=== PATIENT | male | born 1955 | race Caucasian/White ===

== ENCOUNTER 2017-02-23 17:06 | Inpatient (IN) | payer OTHER ==
[~2017-02-23] VITALS: Ht 170.2 cm; Wt 69.4 kg
[2017-02-23] MEDS ORDERED: ACETAMINOPHEN 650 MG SUPP.RECT. PR PRN (17:30)
[2017-02-23 17:32] VITALS: BP 149/83
[2017-02-23] MEDS: MORPHINE SULFATE 4 MG/ML DISP.SYRIN. IV PRN ×2 (17:38→22:09)
[2017-02-23] MEDS: POTASSIUM CL 20MEQ D5-0.45NACL 1,000 ML IV SCH (17:41)
[2017-02-23] MEDS: ONDANSETRON PF 4 MG/2 ML VIAL. IV PRN ×2 (17:50→22:10)
[2017-02-23] MEDS ORDERED: PIP/TAZO PER PHARMACY MC PRN (18:00)
[2017-02-23] MEDS ORDERED: ALLO300T PO (18:03)
[2017-02-23] MEDS ORDERED: DAPS60GE TP (18:03)
[2017-02-23] MEDS ORDERED: AMLO10TA2 PO (18:04)
[2017-02-23] MEDS ORDERED: FENO145T2 PO (18:05)
[2017-02-23] MEDS ORDERED: OMEG10005 PO (18:06)
[2017-02-23] MEDS ORDERED: MULT1TAB77 PO (18:06)
[2017-02-23] MEDS ORDERED: Dapsone PO (18:08)
[2017-02-23] MEDS: PIPERACILLIN/TAZOBACTAM 3.375 GM in IV NORMAL SALINE 50ML 50 ML IV SCH ×2 (18:37→23:12)
[2017-02-23 22:35] VITALS: BP 116/66
[2017-02-24] MEDS: MORPHINE SULFATE 4 MG/ML DISP.SYRIN. IV PRN ×5 (02:49→23:36)
[2017-02-24] MEDS: ONDANSETRON PF 4 MG/2 ML VIAL. IV PRN ×3 (02:49→17:52)
[2017-02-24] MEDS: POTASSIUM CL 20MEQ D5-0.45NACL 1,000 ML IV SCH ×2 (02:57→14:05)
[2017-02-24] MEDS: PIPERACILLIN/TAZOBACTAM 3.375 GM in IV NORMAL SALINE 50ML 50 ML IV SCH ×3 (05:16→17:53)
[2017-02-24 05:41] VITALS: BP 110/66
[2017-02-24 06:16] LABS: BASO % 0 % (0-3); EOS % 0 % (0-3); HEMATOCRIT 37.1 % (39.0-53.0); HEMOGLOBIN 12.2 g/dL (13.0-17.5); LYMPH # 0.5 x10^3/uL (1.0-4.8); LYMPH % 4 % (24-48); MEAN CORPUSCULAR HEMOGLOBIN 31 pg (25-35); MEAN CORPUSCULAR HGB CONC 33 g/dL (31-37); MEAN CORPUSCULAR VOLUME 95 fL (79-100); MONO # 0.6 x10^3/uL (0.0-1.1); MONO % 5 % (0-9); NEUT # 11.4 x10^3uL (1.8-7.7); NEUT % 91 % (31-73); PLATELET COUNT 211 x10^3/uL (140-400); RED BLOOD COUNT 3.91 x10^6/uL (4.30-5.70); RED CELL DISTRIBUTION WIDTH 13.5 % (11.5-14.5); WHITE BLOOD COUNT 12.5 x10^3/uL (4.0-11.0)
[2017-02-24 06:29] LABS: ALBUMIN 2.9 g/dL (3.4-5.0); ALBUMIN/GLOBULIN RATIO 0.9 (1.0-1.7); CALCIUM 8.5 mg/dL (8.5-10.1); CREATININE 1.5 mg/dL (0.7-1.3); GFR 47.9; POTASSIUM 3.7 mmol/L (3.5-5.1); TOTAL BILIRUBIN 1.4 mg/dL (0.2-1.0); TOTAL PROTEIN 6.3 g/dL (6.4-8.2)
[2017-02-24 11:39] VITALS: BP 114/58
[2017-02-24] MEDS ORDERED: IV NORMAL SALINE 500ML 500 ML IV ONE (14:00)
--- NOTE | 2017-02-24 14:38 | HP ---
ADMIT DATE: 02/23/2017 HISTORY OF PRESENT ILLNESS: The patient is a 61-year-old male patient who was transferred yesterday from his primary care physician where he presented with abdominal pain mostly in the left quadrant and suprapubic area and has had a CT scan and lab work. His lab work showed that he has leukocytosis with a white cell count of 15,700. His CT scan showed that he has acute sigmoid diverticulitis. It is thought to be also microperforation. No abscess is seen. There are inflammatory changes and wall thickening involving the dome of the urinary bladder secondary to sigmoid diverticulitis; however, the both kidneys enhanced symmetrically, both kidneys demonstrate multiple small attenuation lesions with the largest in the superior pole of the left kidney compatible with cyst, aortic atherosclerosis seen. There is no evidence of bowel obstruction. Appendix is not confidently identified. The patient was admitted to [address] [place] [address] and was kept n.p.o., started on IV Zosyn at 3.375 gram as per pharmacy recommendation, IV morphine and Zofran, to follow his lab work and clinical condition and decide to consult the surgeon if need be. PAST MEDICAL HISTORY: Significant for hypertension, hyperlipidemia, gout and dermatitis herpetiformis. PAST SURGICAL HISTORY: Significant for hernia repair and colonoscopy. ALLERGIES: HE IS ALLERGIC TO STATIN ____ AND GLUTEN. MEDICATIONS: He is currently on following medications: He is on allopurinol 300 mg once a day, amlodipine 10 mg once a day, fenofibrate 145 mg daily, multivitamin 1 tablet once a day, omega-3 fatty acid 1000 mg daily and dapsone 25 mg p.o. b.i.d. FAMILY HISTORY: He has 2 brothers, both younger and one of them of HIV related illness. The other brother and sister are healthy. His father of colon cancer and mother of myocardial infarction. SOCIAL HISTORY: He is , has 1 son, has never smoked, does not drink alcohol, except occasionally and he is a middle school band teacher. REVIEW OF SYSTEMS: The patient denied any blurring of vision, cataract, glaucoma or macular degeneration. Denied any earache, tinnitus or sensorineural deafness. Denied any nosebleeds, stuffy nose or postnasal drip. Denied any sore throat, sore tongue, toothache, hoarseness of voice or difficulty swallowing. Denied any nausea or vomiting. He did complain of diarrhea, no constipation. Denied any hematemesis, melena or hematochezia. Denied any dysuria, frequency or hematuria. Did complain of postvoid dribbling. Denied any chest pain, shortness of breath, orthopnea or paroxysmal nocturnal dyspnea. Denied any cough, phlegm or hemoptysis. Denied any chills, rigors or fever. PHYSICAL EXAMINATION: GENERAL: When I examined him, he looked well and was clearly in no apparent respiratory distress, slightly pale, no jaundice, cyanosis, or thyromegaly. No jugular venous distension. No limb edema. VITAL SIGNS: His heart rate was 75, blood pressure 114/58, temperature was 98.8, respiratory rate was 20 and oxygen saturation was 93% on room air. HEAD, EYES, EARS, NOSE AND THROAT: Showed normocephalic, atraumatic. NECK: Supple. HEART: Showed normal first and second heart sounds with no gallop, rub or murmur. CHEST: Clear to auscultation. No crepitation or rhonchi. ABDOMEN: Distended, soft with tenderness mostly in the left lower quadrant and suprapubic area. There is no guarding or rigidity. No organomegaly. All hernial orifices intact. Bowel sounds normal. NEUROLOGIC: He was awake, alert, responding appropriately. Cranial nerves are intact. EXTREMITIES: He moves extremities without difficulty, ambulates without assistance or assistive devices. LABORATORY DATA: On admission showed a white cell count of 15,700, hemoglobin 15.2, hematocrit 45.7, MCV 95 and platelet count of 259,000 with a manual differential showed 95% polymorphs, 2% lymphocytes and 3% monocytes. His chemistry showed a serum sodium 140, potassium 3.9, chloride 103, bicarbonate 27, anion gap of 10, BUN 14, creatinine 1.4, estimated GFR was 52 mL per minute, his glucose 158, calcium was 9.7. Total bilirubin was 1.5. AST, ALT, alkaline phosphatase were normal. Total protein was 7.7, albumin 3.9. His amylase and lipase were normal. His urinalysis showed the urine was cintia, clear with pH of 6.5, specific gravity of 1.010. There is trace of protein. The urine was negative for glucose, ketones. There was trace of blood, negative for nitrite and bilirubin, negative for leukocyte esterase, occasional rbc's, 1-4 wbc's, no bacteria and CT scan of the abdomen showed that there is fatty liver disease seen. Spleen, pancreas, gallbladder and bilateral adrenal glands are unremarkable. Both kidneys enhanced symmetrically, both demonstrates multiple small low attenuation lesion with the largest in the superior pole of the left kidney compatible with cyst, aortic atherosclerosis seen. There is no evidence of bowel obstruction. Appendix is not confidently identified. There are inflammatory changes and bowel wall thickening involving the mid sigmoid colon compatible with acute diverticulitis. Diverticulitis appears to affect several diverticula between the sigmoid colon and the urinary bladder dome. There are several small foci of gas, which are thought to be representing foci of microperforation. No free pneumoperitoneum under diaphragm is seen. No focal peripherally enhancing fluid collection or suggest an abscess is seen. There is inflammatory change involving the dome of the urinary bladder, thought to be secondary to the adjacent sigmoid diverticulitis. No intraluminal gas is seen within the urinary bladder. ASSESSMENT AND PLAN: The patient was admitted with acute sigmoid diverticulitis, was kept n.p.o., started on IV antibiotic in the form of Zosyn, continued with IV fluid as well as pain medication and antiemetic. We will follow his clinical status and lab work on a daily basis and obviously we will consult surgical team if surgery seemed to be necessary. SOY MA MD DR: RON/chinedu JOB#: [id number] / [id number]
--- NOTE | 2017-02-24 15:37 | PDOC2 ---
TIANA CURTIS [employer] 02/24/17 1537: CONSULT Date of Admission DATE: 02/24/17 TIME: 15:32 Reason for Consult: diverticulitis Referring Physician: ER Chief Complaint abdominal pain Source: Chart review, Patient Problem List diverticulitis History of Present Illness couple day history of abdominal pain lower abdomen. No n/v. Hurt worse when sitting up . Never had diverticulitis in past. attempted laxatives, stool loose, did not help pain. last colonoscopy 2 years ago Cardiovascular: HTN, hyperipidemia Past Surgical History: Hernia Repair (LI) Family History: Cancer, Hypertension Smoke: No ALCOHOL: heavy (daily drinker, 2 vodka/day(most days)) Drugs: None Lives: Alone Current Medications Current Medications Piperacillin Sod/ Tazobactam Sod (Zosyn Per Pharmacy) 1 each PRN DAILY PRN MC SEE COMMENTS Last administered on 02/23/17 17:40; Start 02/23/17 at 18:00 Morphine Sulfate 4 mg 4 mg PRN Q4HRS PRN IV PAIN Last administered on 11:53; Start 02/23/17 at 17:30 Potassium Chloride/Dextrose/ Sod Cl (KCl 20 Meq In D5W-1/2 NS) 1,000 ml @ 100 mls/hr Q10H IV Last administered on 02/24/17 14:05; Start 02/23/17 at 17:30 Ondansetron HCl (Zofran) 4 mg PRN Q6HRS PRN IV NAUSEA/VOMITING Last administered on 02/24/17 07:38; Start 02/23/17 at 17:30; Stop 02/24/17 at 13:44 ; Status DC Acetaminophen 650 mg 650 mg PRN Q6HRS PRN NM PAIN / TEMP; Start 02/23/17 at 17: 30 Piperacillin Sod/ Tazobactam Sod/ Sodium Chloride (Zosyn/Iv Sodium Chloride 0.9 % 50ml) 50 ml @ 100 mls/hr Q6HRS IV Last administered on 02/24/17 11:53; Start 02/23/17 at 18:00 Ondansetron HCl 4 mg 4 mg PRN Q4HRS PRN IV NAUSEA/VOMITING; Start 02/24/17 at 17:30 Sodium Chloride (Iv Sodium Chloride 0.9% 500ml) 500 ml @ 0 mls/hr 1X ONCE IV Last administered on 02/24/17t 14:05; Start 02/24/17 at 14:00; Stop 02/24/17 at 14:01; Status DC Active Scripts Active Reported [Dapsone] 25 Mg PO BID Thera (Multivitamins,Therapeutic) 1 Each Tablet 1 Each PO DAILY [place]-3 ([place]-3 Fatty Acids) 1,000 Mg Capsule 1,000 Mg PO DAILY Fenofibrate (Fenofibrate Nanocrystallized) 145 Mg Tablet 1 Tab PO DAILY Amlodipine Besylate 10 Mg Tablet 1 Tab PO DAILY Allopurinol 300 Mg Tablet 1 Tab PO DAILY Allergies: Coded Allergies: Etzpdre-Awe-Wxn Reductase Inhibitor (Verified Allergy, Mild, 02/23/17) colesevelam (Verified Allergy, Mild, Unknown, 02/23/17) gluten (Verified Allergy, Mild, 02/23/17) General: YES: Other (+ fevers ), No: Chills PSYCHOLOGICAL ROS: No: Anxiety, Depression Eyes: No: Blurry vision, Double vision HEENT: No: Heacaches, Sore Throat Hematological and Lymphatic: No: Bleeding Problems, Blood Clots Respiratory: No: Cough, Shortness of breath Cardiovascular: No: Chest Pain, Palpitations Gastrointestinal: YES: Other (see hpi) Genitourinary: No: Dysuria, Henaturia Musculoskeletal: No: Joint Pain, Muscle Pain Neurological: No: Impaired Coord/balance, Numbness/Tingling Skin: No: Pruritus, Rash General: Alert, Oriented X3, Cooperative, No acute distress HEENT: PERRLA, Mucous membr. moist/pink Lungs: Clear to auscultation, Normal air movement Heart: Regular rate, Normal S1, Normal S2, No murmurs Abdomen: Soft, Other (ND, tender to LLQ, no guarding ) Extremities: No clubbing, No cyanosis Skin: No rashes, No breakdown, No significant lesion Neuro: Normal gait, Normal speech Psych/Mental Status: Mental status NL VITALS Vital Signs Date Time Temp Pulse Resp B/P Pulse Ox O2 Delivery O2 Flow Rate FiO2 02/24/17 11:53 93 Room Air 02/24/17 11:39 98.8 75 20 114/58 Labs Laboratory Tests Test 02/23/17 22:50 02/24/17 05:43 Lactic Acid Level 1.2mmol/L (0.4-2.0) White Blood Count 12.5x10^3/uL (4.0-11.0) Red Blood Count 3.91x10^6/uL (4.30-5.70) Hemoglobin 12.2g/dL (13.0-17.5) Hematocrit 37.1% (39.0-53.0) Mean Corpuscular Volume 95fL (79-100) Mean Corpuscular Hemoglobin 31pg (25-35) Mean Corpuscular Hemoglobin Concent 33g/dL (31-37) Red Cell Distribution Width 13.5% (11.5-14.5) Platelet Count 211x10^3/uL (140-400) Neutrophils (%) (Auto) 91% (31-73) Lymphocytes (%) (Auto) 4% (24-48) Monocytes (%) (Auto) 5% (0-9) Eosinophils (%) (Auto) 0% (0-3) Basophils (%) (Auto) 0% (0-3) Neutrophils # (Auto) 11.4x10^3uL (1.8-7.7) Lymphocytes # (Auto) 0.5x10^3/uL (1.0-4.8) Monocytes # (Auto) 0.6x10^3/uL (0.0-1.1) Eosinophils # (Auto) 0.0x10^3/uL (0.0-0.7) Basophils # (Auto) 0.0x10^3/uL (0.0-0.2) Sodium Level 136mmol/L (136-145) Potassium Level 3.7mmol/L (3.5-5.1) Chloride Level 103mmol/L (98-107) Carbon Dioxide Level 25mmol/L (21-32) Anion Gap 8 (6-14) Blood Urea Nitrogen 12mg/dL (8-26) Creatinine 1.5mg/dL (0.7-1.3) Estimated GFR (Cockcroft-Gault) 47.9 BUN/Creatinine Ratio 8 (6-20) Glucose Level 154mg/dL (70-99) Calcium Level 8.5mg/dL (8.5-10.1) Total Bilirubin 1.4mg/dL (0.2-1.0) Aspartate Amino Transf (AST/SGOT) 17U/L (15-37) Alanine Aminotransferase (ALT/SGPT) 41U/L (16-63) Alkaline Phosphatase 51U/L (46-116) Total Protein 6.3g/dL (6.4-8.2) Albumin 2.9g/dL (3.4-5.0) Albumin/Globulin Ratio 0.9 (1.0-1.7) Assessment/Plan diverticulitis with micro perf no abscess fevers improved today continue IV abx, npo, hydration , pain control lab in AM serial exam Problems: KITTY MARTIN MD 02/24/17 1924: CONSULT Allergies: Coded Allergies: Ueluedk-Ngq-Aqf Reductase Inhibitor (Verified Allergy, Mild, 02/23/17) colesevelam (Verified Allergy, Mild, Unknown, 02/23/17) gluten (Verified Allergy, Mild, 02/23/17) Assessment/Plan Reviewed, CT reviewed; agree with above, recommend bowel rest, IV abx, serial exam/labs, surgery would be indicated if doesn't respond to medical management Problems: TIANA CURTIS [employer] Feb 24, 2017 15:37 KITTY MARTIN MD Feb 24, 2017 19:24
[2017-02-24 16:00] VITALS: BP 132/76
[2017-02-24 20:02] VITALS: BP 123/70
[2017-02-24 23:00] VITALS: BP 125/69
[2017-02-25] MEDS: POTASSIUM CL 20MEQ D5-0.45NACL 1,000 ML IV SCH ×3 (02:02→20:02)
[2017-02-25 03:00] VITALS: BP 122/70
[2017-02-25] MEDS: PIPERACILLIN/TAZOBACTAM 3.375 GM in IV NORMAL SALINE 50ML 50 ML IV SCH ×6 (05:23→23:45)
[2017-02-25] MEDS: MORPHINE SULFATE 4 MG/ML DISP.SYRIN. IV PRN ×4 (05:29→22:20)
[2017-02-25 06:08] VITALS: BP 125/78
[2017-02-25 06:55] LABS: CALCIUM 8.6 mg/dL (8.5-10.1); CREATININE 1.2 mg/dL (0.7-1.3); POTASSIUM 3.7 mmol/L (3.5-5.1)
[2017-02-25 07:01] LABS: HEMATOCRIT 35.1 % (39.0-53.0); HEMOGLOBIN 11.7 g/dL (13.0-17.5); RED BLOOD COUNT 3.71 x10^6/uL (4.30-5.70); RED CELL DISTRIBUTION WIDTH 13.8 % (11.5-14.5); WHITE BLOOD COUNT 10.4 x10^3/uL (4.0-11.0)
[2017-02-25 16:35] VITALS: BP 145/83
[2017-02-25 20:26] VITALS: BP 136/77
[2017-02-25] MEDS: ONDANSETRON PF 4 MG/2 ML VIAL. IV PRN (22:20)
[2017-02-26] MEDS: PIPERACILLIN/TAZOBACTAM 3.375 GM in IV NORMAL SALINE 50ML 50 ML IV SCH ×4 (05:08→23:41)
[2017-02-26] MEDS: ONDANSETRON PF 4 MG/2 ML VIAL. IV PRN (05:17)
[2017-02-26] MEDS: MORPHINE SULFATE 4 MG/ML DISP.SYRIN. IV PRN ×2 (05:17→15:04)
[2017-02-26] MEDS: POTASSIUM CL 20MEQ D5-0.45NACL 1,000 ML IV SCH ×3 (05:30→21:50)
[2017-02-26 06:00] VITALS: BP 133/78
[2017-02-26 06:38] LABS: BASO % 0 % (0-3); EOS # 0.2 x10^3/uL (0.0-0.7); EOS % 2 % (0-3); HEMATOCRIT 36.8 % (39.0-53.0); HEMOGLOBIN 12.2 g/dL (13.0-17.5); LYMPH # 0.5 x10^3/uL (1.0-4.8); LYMPH % 5 % (24-48); MEAN CORPUSCULAR HEMOGLOBIN 31 pg (25-35); MEAN CORPUSCULAR HGB CONC 33 g/dL (31-37); MEAN CORPUSCULAR VOLUME 93 fL (79-100); MONO # 0.7 x10^3/uL (0.0-1.1); MONO % 8 % (0-9); NEUT # 8.1 x10^3uL (1.8-7.7); NEUT % 84 % (31-73); PLATELET COUNT 259 x10^3/uL (140-400); RED BLOOD COUNT 3.94 x10^6/uL (4.30-5.70); RED CELL DISTRIBUTION WIDTH 13.7 % (11.5-14.5); WHITE BLOOD COUNT 9.6 x10^3/uL (4.0-11.0)
[2017-02-26 06:56] LABS: ALBUMIN 2.6 g/dL (3.4-5.0); ALBUMIN/GLOBULIN RATIO 0.7 (1.0-1.7); CALCIUM 8.6 mg/dL (8.5-10.1); CREATININE 1.1 mg/dL (0.7-1.3); GFR 68.5; POTASSIUM 3.6 mmol/L (3.5-5.1); TOTAL BILIRUBIN 1.1 mg/dL (0.2-1.0); TOTAL PROTEIN 6.4 g/dL (6.4-8.2)
--- NOTE | 2017-02-26 08:16 | PDOC ---
TIANA CURTIS [employer] 02/26/17 0816: SURGICAL PROGRESS NOTE Subjective feeling pretty well minimal pain + flatus no n/v Vital Signs Vital Signs Date Time Temp Pulse Resp B/P Pulse Ox O2 Delivery O2 Flow Rate FiO2 02/26/17 07:13 96 Room Air 02/26/17 06:00 98.9 64 20 133/78 2.0 I&O Intake and Output 02/26/17 07:00 Intake Total 2363.35 ml Balance 2363.35 ml Intake Oral 0 ml IV Total 2363.35 ml # Voids 6 General: Alert, Oriented X3, Cooperative, No acute distress Abdomen: Soft, No tenderness, Other (ND) Labs Laboratory Tests Test 02/25/17 06:19 02/26/17 06:21 White Blood Count 10.4x10^3/uL (4.0-11.0) 9.6x10^3/uL (4.0-11.0) Red Blood Count 3.71x10^6/uL (4.30-5.70) 3.94x10^6/uL (4.30-5.70) Hemoglobin 11.7g/dL (13.0-17.5) 12.2g/dL (13.0-17.5) Hematocrit 35.1% (39.0-53.0) 36.8% (39.0-53.0) Mean Corpuscular Volume 95fL (79-100) 93fL (79-100) Mean Corpuscular Hemoglobin 32pg (25-35) 31pg (25-35) Mean Corpuscular Hemoglobin Concent 33g/dL (31-37) 33g/dL (31-37) Red Cell Distribution Width 13.8% (11.5-14.5) 13.7% (11.5-14.5) Platelet Count 213x10^3/uL (140-400) 259x10^3/uL (140-400) Sodium Level 137mmol/L (136-145) 139mmol/L (136-145) Potassium Level 3.7mmol/L (3.5-5.1) 3.6mmol/L (3.5-5.1) Chloride Level 105mmol/L (98-107) 104mmol/L (98-107) Carbon Dioxide Level 23mmol/L (21-32) 24mmol/L (21-32) Anion Gap 9 (6-14) 11 (6-14) Blood Urea Nitrogen 9mg/dL (8-26) 7mg/dL (8-26) Creatinine 1.2mg/dL (0.7-1.3) 1.1mg/dL (0.7-1.3) Estimated GFR (Cockcroft-Gault) 62.0 68.5 Glucose Level 126mg/dL (70-99) 124mg/dL (70-99) Calcium Level 8.6mg/dL (8.5-10.1) 8.6mg/dL (8.5-10.1) Neutrophils (%) (Auto) 84% (31-73) Lymphocytes (%) (Auto) 5% (24-48) Monocytes (%) (Auto) 8% (0-9) Eosinophils (%) (Auto) 2% (0-3) Basophils (%) (Auto) 0% (0-3) Neutrophils # (Auto) 8.1x10^3uL (1.8-7.7) Lymphocytes # (Auto) 0.5x10^3/uL (1.0-4.8) Monocytes # (Auto) 0.7x10^3/uL (0.0-1.1) Eosinophils # (Auto) 0.2x10^3/uL (0.0-0.7) Basophils # (Auto) 0.0x10^3/uL (0.0-0.2) BUN/Creatinine Ratio 6 (6-20) Total Bilirubin 1.1mg/dL (0.2-1.0) Aspartate Amino Transf (AST/SGOT) 20U/L (15-37) Alanine Aminotransferase (ALT/SGPT) 37U/L (16-63) Alkaline Phosphatase 78U/L (46-116) Total Protein 6.4g/dL (6.4-8.2) Albumin 2.6g/dL (3.4-5.0) Albumin/Globulin Ratio 0.7 (1.0-1.7) Assessment/Plan diverticulitis tmax 99 wbc normal, no pain on exam continue IV abx start clears work toward transitioning to oral abx and dc in next 1-2 days will need to fu with GI in 4-6 weeks for colonoscopy KITTY MARTIN MD 02/26/172024: SURGICAL PROGRESS NOTE Assessment/Plan Reviewed, agree with above TIANA CURTIS [employer] Feb 26, 2017 08:16 KITTY MARTIN MD Feb 26, 2017 20:25
--- NOTE | 2017-02-26 10:46 | ACF ---
Admission Criteria Forms DIVERTICULITIS, ACUTE Clinical Indications for Admission to Inpatient Care (Place 'X' for any and all applicable criteria): Admission is indicated for ANY ONE of the following (1)(2)(3)(4): [X]I. Peritoneal signs on physical examination (eg, acute abdominal pain, abdominal tenderness and guarding) [ ]II. Hemodynamic instability [ ]III. Persistent gross bleeding per rectum [ ]IV. Need for inpatient surgical intervention [ ]V. Significant abnormality on imaging study including ANY ONE of the following: [ ]a) Abscess [ ]b) Obstruction [ ]c) Fistula [ ]d) Ileus [ ]e) Free perforation [ ]. Immunocompromised patient (steroid use, chemotherapy, uremia, AIDS , transplant patient ) with acute symptoms [ ]VII Inpatient admission required rather than observation care (also use Diverticulitis, Acute: Observation Care as appropriate) because of ANY ONE of the following: [ ]a) High fever or infection. requiring inpatient admission as indicated by ANY ONE of the following(5): [ ]1) Appropriate outpatient or observation care antimicrobial treatment unavailable, not effective, not feasible [ ]2) Temperature > 103.1 degrees F (39.5 degrees C) (oral) or < 96.8 degrees F (36 degrees C)(rectal) that does not respond to all emergency treatment measures [ ]3) Temperature> 104.9 degrees F (40.5 degrees C)( oral) [ ]4) Documented bacteremia [ ]b) Severe pain requiring acute inpatient management [ ]c) Severe electrolyte abnormalities requiring inpatient care [ ]d) Ongoing transfusion for blood loss (> 2 units) [ ]e) IV fluid to replace significant ongoing losses (> 3 L/m2 per day) [ ]f) Parenteral nutrition regimen that must be implemented on inpatient basis [ ]g) Other condition, treatment or monitoring requiring inpatient admission Extended stay beyond goal length of stay may be needed for (2) (15) : [ ]a) Unresolved symptoms (19) [ ]b) Complications [ ]c) Diverticular hemorrhage(2) The original [facility] [employer] content created by [facility] [employer] has been revised. The portions of the content which have been revised are identified through the use of italic text or in bold, and [facility] has neither reviewed nor approved the modified material. All other unmodified content is copyright [facility]. Please see references footnoted in the original [facility] edition 2016 Admission Criteria Met?: Yes EVITA MORA Feb 26, 2017 10:46
[2017-02-26 14:22] VITALS: BP 126/72
[2017-02-26 19:56] VITALS: BP 153/79
[2017-02-27] MEDS: PIPERACILLIN/TAZOBACTAM 3.375 GM in IV NORMAL SALINE 50ML 50 ML IV SCH ×2 (05:37→11:39)
[2017-02-27 06:17] VITALS: BP 133/72
[2017-02-27 06:53] LABS: ALBUMIN 2.7 g/dL (3.4-5.0); ALBUMIN/GLOBULIN RATIO 0.6 (1.0-1.7); CALCIUM 8.9 mg/dL (8.5-10.1); CREATININE 1.1 mg/dL (0.7-1.3); GFR 68.5; POTASSIUM 3.8 mmol/L (3.5-5.1); TOTAL BILIRUBIN 1.2 mg/dL (0.2-1.0); TOTAL PROTEIN 6.9 g/dL (6.4-8.2)
[2017-02-27 07:04] LABS: BASO % 0 % (0-3); EOS # 0.3 x10^3/uL (0.0-0.7); EOS % 3 % (0-3); HEMATOCRIT 39.3 % (39.0-53.0); HEMOGLOBIN 13.4 g/dL (13.0-17.5); LYMPH # 0.5 x10^3/uL (1.0-4.8); LYMPH % 6 % (24-48); MEAN CORPUSCULAR HEMOGLOBIN 32 pg (25-35); MEAN CORPUSCULAR HGB CONC 34 g/dL (31-37); MEAN CORPUSCULAR VOLUME 93 fL (79-100); MONO # 0.8 x10^3/uL (0.0-1.1); MONO % 10 % (0-9); NEUT # 6.6 x10^3uL (1.8-7.7); NEUT % 81 % (31-73); PLATELET COUNT 311 x10^3/uL (140-400); RED BLOOD COUNT 4.23 x10^6/uL (4.30-5.70); RED CELL DISTRIBUTION WIDTH 13.9 % (11.5-14.5); WHITE BLOOD COUNT 8.2 x10^3/uL (4.0-11.0)
--- NOTE | 2017-02-27 10:02 | PDOC ---
SURGICAL PROGRESS NOTE Subjective Doing well, no pain tolerating full liquids Vital Signs Vital Signs Date Time Temp Pulse Resp B/P Pulse Ox O2 Delivery O2 Flow Rate FiO2 02/27/17 06:17 98.2 63 18 133/72 96 Nasal Cannula 2.0 I&O Intake and Output 02/27/17 07:00 Intake Total 2396.29 ml Output Total 502 ml Balance 1894.29 ml Intake Oral 1180 ml IV Total 1216.29 ml Output Urine Total 500 ml Stool Total 2 ml # Voids 7 # Bowel Movements 6 PATIENT HAS A LOREDO: No General: Alert, Oriented X3, Cooperative, No acute distress Abdomen: Normal bowel sounds, Soft, No tenderness Labs Laboratory Tests Test 02/26/17 06:21 02/27/17 06:25 White Blood Count 9.6x10^3/uL (4.0-11.0) 8.2x10^3/uL (4.0-11.0) Red Blood Count 3.94x10^6/uL (4.30-5.70) 4.23x10^6/uL (4.30-5.70) Hemoglobin 12.2g/dL (13.0-17.5) 13.4g/dL (13.0-17.5) Hematocrit 36.8% (39.0-53.0) 39.3% (39.0-53.0) Mean Corpuscular Volume 93fL (79-100) 93fL (79-100) Mean Corpuscular Hemoglobin 31pg (25-35) 32pg (25-35) Mean Corpuscular Hemoglobin Concent 33g/dL (31-37) 34g/dL (31-37) Red Cell Distribution Width 13.7% (11.5-14.5) 13.9% (11.5-14.5) Platelet Count 259x10^3/uL (140-400) 311x10^3/uL (140-400) Neutrophils (%) (Auto) 84% (31-73) 81% (31-73) Lymphocytes (%) (Auto) 5% (24-48) 6% (24-48) Monocytes (%) (Auto) 8% (0-9) 10% (0-9) Eosinophils (%) (Auto) 2% (0-3) 3% (0-3) Basophils (%) (Auto) 0% (0-3) 0% (0-3) Neutrophils # (Auto) 8.1x10^3uL (1.8-7.7) 6.6x10^3uL (1.8-7.7) Lymphocytes # (Auto) 0.5x10^3/uL (1.0-4.8) 0.5x10^3/uL (1.0-4.8) Monocytes # (Auto) 0.7x10^3/uL (0.0-1.1) 0.8x10^3/uL (0.0-1.1) Eosinophils # (Auto) 0.2x10^3/uL (0.0-0.7) 0.3x10^3/uL (0.0-0.7) Basophils # (Auto) 0.0x10^3/uL (0.0-0.2) 0.0x10^3/uL (0.0-0.2) Sodium Level 139mmol/L (136-145) 141mmol/L (136-145) Potassium Level 3.6mmol/L (3.5-5.1) 3.8mmol/L (3.5-5.1) Chloride Level 104mmol/L (98-107) 104mmol/L (98-107) Carbon Dioxide Level 24mmol/L (21-32) 24mmol/L (21-32) Anion Gap 11 (6-14) 13 (6-14) Blood Urea Nitrogen 7mg/dL (8-26) 5mg/dL (8-26) Creatinine 1.1mg/dL (0.7-1.3) 1.1mg/dL (0.7-1.3) Estimated GFR (Cockcroft-Gault) 68.5 68.5 BUN/Creatinine Ratio 6 (6-20) 5 (6-20) Glucose Level 124mg/dL (70-99) 124mg/dL (70-99) Calcium Level 8.6mg/dL (8.5-10.1) 8.9mg/dL (8.5-10.1) Total Bilirubin 1.1mg/dL (0.2-1.0) 1.2mg/dL (0.2-1.0) Aspartate Amino Transf (AST/SGOT) 20U/L (15-37) 35U/L (15-37) Alanine Aminotransferase (ALT/SGPT) 37U/L (16-63) 61U/L (16-63) Alkaline Phosphatase 78U/L (46-116) 141U/L (46-116) Total Protein 6.4g/dL (6.4-8.2) 6.9g/dL (6.4-8.2) Albumin 2.6g/dL (3.4-5.0) 2.7g/dL (3.4-5.0) Albumin/Globulin Ratio 0.7 (1.0-1.7) 0.6 (1.0-1.7) Assessment/Plan Diverticulitis improving afebrile, normal wbc and no pain Ok to D/C home when ok with IM THOMAS LEBLANC MD February 27, 2017 10:02
[2017-02-27 10:40] VITALS: BP 144/77
--- NOTE | 2017-02-27 10:55 | RAD ---
KUB, 02/27/2017: History: Abdominal pain Gas is present in large and small bowel in a nonspecific pattern. There is no evidence of organomegaly or abnormal abdominal calcification. IMPRESSION: No acute abdominal abnormality is detected.
[2017-02-27] MEDS: POTASSIUM CL 20MEQ D5-0.45NACL 1,000 ML IV SCH (11:39)
[2017-02-27] MEDS ORDERED: AMOX1TAB61 PO (12:53)
--- NOTE | 2017-02-27 20:07 | DS ---
DATE OF DISCHARGE: 02/27/2017 DISCHARGE DIAGNOSES: Acute diverticulitis, severe protein malnutrition, sepsis secondary to diverticulitis, hypertension, gout, not addressed. HOSPITAL COURSE: This is a 61-year-old male who was admitted by Dr. Jorge L Singh from his primary care physician's office where he presented with abdominal pain in the left lower quadrant and suprapubic area. Subsequent CAT scan revealed acute diverticulitis. He was followed by surgery while he was here. He received Zosyn during his hospital stay, tolerated that well and was ready for discharge on 02/27/2017. PHYSICAL EXAMINATION: VITAL SIGNS: On 02/27/2017, blood pressure 144/77, pulse 71, respirations 20 and pulse ox 95% on room air. HEENT: The patient's tongue was moist. NECK: Supple. LUNGS: Clear. CARDIOVASCULAR: Regular rhythm and rate. ABDOMEN: Soft. He has mild tenderness down deep sigmoid colon area, other quadrants negative. EXTREMITIES: Without edema. LABORATORY DATA: White cell count 8.2 this morning. Chemistry profile is good with exception of an albumin of 2.7, very mildly elevated glucose. PLAN: Discharge home on Augmentin for 7 more days, needs to have a colonoscopy in 4 to 6 weeks, followup with surgery or Dr. Coburn for that and type written discharge instructions were done. STEPH ENGLISH DO DR: BRY/chinedu JOB#: [id number] / [id number]
== END 2017-02-27 16:24 | disposition home or self-care (01) | DRG 871 ==
LOC: 1 SOUTH 17:06
PROVIDERS: ADMIT Internal Medicine; ATTEND Internal Medicine
DX: A41.9 Sepsis, unspecified organism (principal); E43 Unspecified severe protein-calorie malnutrition; K57.32 Diverticulitis of large intestine without perforation or abscess without bleeding; E78.5 Hyperlipidemia, unspecified; L13.0 Dermatitis herpetiformis; I10 Essential (primary) hypertension; M10.9 Gout, unspecified; Z80.0 Family history of malignant neoplasm of digestive organs; Z82.49 Family history of ischemic heart disease and other diseases of the circulatory system; Z83.0 Family history of human immunodeficiency virus [HIV] disease; Z88.8 Allergy status to other drugs, medicaments and biological substances; Z68.24 Body mass index [BMI] 24.0-24.9, adult
CPT/HCPCS: 36415; 74000; 80048; 80053; 83605; 85027; 87040; 87324; J2270; J2405; J2543; J7040

== ENCOUNTER → 2017-02-23 | Outpatient (CLI) | payer OTHER ==
[~2017-02-23] MED LIST: ALLO300T PO; AMLO10TA2 PO; AMOX1TAB61 PO; DAPS60GE TP; Dapsone PO; FENO145T2 PO; IOHEXOL 240 MG/ML 50ML VIAL. PO ONE; IOHEXOL 300 MG/ML 75 ML VIAL. IV ONE; MULT1TAB77 PO; OMEG10005 PO
[2017-02-23 15:29] LABS: BASO # 0.1 x10^3/uL (0.0-0.2); BASO % 0 % (0-3); EOS % 0 % (0-3); HEMATOCRIT 45.7 % (39.0-53.0); HEMOGLOBIN 15.2 g/dL (13.0-17.5); LYMPH # 0.3 x10^3/uL (1.0-4.8); LYMPH % 2 % (24-48); MEAN CORPUSCULAR HEMOGLOBIN 32 pg (25-35); MEAN CORPUSCULAR HGB CONC 33 g/dL (31-37); MEAN CORPUSCULAR VOLUME 95 fL (79-100); MONO # 0.5 x10^3/uL (0.0-1.1); MONO % 3 % (0-9); NEUT # 14.9 x10^3uL (1.8-7.7); NEUT % 95 % (31-73); PLATELET COUNT 259 x10^3/uL (140-400); RED BLOOD COUNT 4.82 x10^6/uL (4.30-5.70); RED CELL DISTRIBUTION WIDTH 13.9 % (11.5-14.5); WHITE BLOOD COUNT 15.7 x10^3/uL (4.0-11.0)
[2017-02-23 15:37] LABS: ALBUMIN 3.9 g/dL (3.4-5.0); CALCIUM 9.7 mg/dL (8.5-10.1); CREATININE 1.4 mg/dL (0.7-1.3); GFR 51.9; POTASSIUM 3.9 mmol/L (3.5-5.1); TOTAL BILIRUBIN 1.5 mg/dL (0.2-1.0); TOTAL PROTEIN 7.7 g/dL (6.4-8.2)
--- NOTE | 2017-02-23 16:21 | RAD ---
CT abdomen and pelvis with IV contrast History: Bilateral abdominal pain since previous night. Comparison: None. Technique: After administration of oral and intravenous contrast, 75 mL Omnipaque 300, helical CT of the abdomen and pelvis was performed from the lung bases through the ischial tuberosities. Axial, sagittal, and coronal reconstructions were obtained. One or more of the following individualized dose reduction techniques were utilized for the study: Automated exposure control Adjustment of mA and/or kV according to patient's size Use of iterative reconstruction technique. Findings: Fatty liver disease is seen. Spleen, pancreas, gallbladder, and bilateral adrenal glands are unremarkable. Bilateral kidneys enhance symmetrically. Both kidneys demonstrate multiple small low-attenuation lesions with the largest in the superior pole of left kidney compatible with cyst. Aortic atherosclerosis seen. There is no evidence of bowel obstruction. Appendix is not confidently identified. There is inflammatory change and the bowel wall thickening involving the mid sigmoid colon, compatible with acute diverticulitis. Diverticulitis appears to affect several diverticula. Between the sigmoid colon and the urinary bladder dome, there are several small foci of gas which are thought to represent foci of microperforation. No free pneumoperitoneum under the diaphragm is seen. No focal peripherally enhancing fluid collection to suggest abscess is seen. There is inflammatory change involving the dome of the urinary bladder, thought to be secondary to the adjacent sigmoid diverticulitis. No intraluminal gas is seen involving the urinary bladder. Impression: 1. Acute sigmoid diverticulitis. There is thought to be microperforation. No abscess is seen. 2. There is inflammatory change and wall thickening involving the dome of the urinary bladder secondary to the sigmoid diverticulitis.
[2017-02-23 16:41] LABS: BILIRUBIN,URINE NEG (NEG); CLARITY,URINE CLEAR; COLOR,URINE AMBER; GLUCOSE,URINE NEG (NEG); NITRITE,URINE NEG (NEG); UROBILINOGEN,URINE 0.2 mg/dL (0.2 mg/dL)
[2017-02-23 16:42] LABS: BACTERIA,URINE 0 /HPF (0-FEW); RBC,URINE OCC /HPF (0-2)
[2017-02-23 17:48] LABS: % BANDS 3 % (0-9); % LYMPHS 2 % (24-48); % MONOS 3 % (0-10); % SEGS 92 % (35-66)
[2017-02-23 18:10] LABS: PLT ESTIMATE ADEQUATE (ADEQUATE)
[2017-02-23 18:14] LABS: SEDIMENTATION RATE 10 (0-15)
--- NOTE | 2017-02-25 07:51 | PN ---
DATE: 02/24/2017 SUBJECTIVE: The patient was admitted as a direct admission from his primary care physician, where he presented with abdominal pain mostly in the left lower quadrant and suprapubic area. Lab work showed leukocytosis and CT scan showed that he has acute diverticulitis, who was admitted yesterday, started on IV fluid, IV antibiotic and apparently did very well. On examining this morning, he continued to have mild pain in his left lower quadrant and suprapubic area; however, denied any nausea or vomiting. Denied any chills, rigors or fever. He does have loose bowel movement. PHYSICAL EXAMINATION: GENERAL: When I examined him, he looked pale, but no jaundice or cyanosis. No lymphadenopathy or thyromegaly. No jugular venous distention. No limb edema. VITAL SIGNS: His heart rate was 75, blood pressure was 114/58, temperature was 98.8, respiratory rate 20, and oxygen saturation was 93%. HEAD, EYES, EARS, NOSE AND THROAT: Normocephalic, atraumatic. NECK: Supple. HEART: Showed normal first and second heart sounds with no gallop, rub or murmur. CHEST: Clear to auscultation. No crepitation or rhonchi. ABDOMEN: Distended, soft, and nontender. No guarding or rigidity. No organomegaly. Hernial orifices intact. Bowel sounds normal. NEUROLOGIC: He was awake, alert, responding appropriately. Cranial nerves intact. He moves extremities without difficulty, ambulates without assistance or assistive devices. LABORATORY DATA: This morning showed a white cell count is down to 12,500, hemoglobin 12.2, hematocrit 37.1, MCV 95 and platelet count of 211,000 with a manual differential showed 91% polymorphs, 2% lymphocytes. His chemistry showed a serum sodium 136, potassium 3.7, chloride 103, bicarbonate 25, anion gap of 8, BUN 12, creatinine 1.5, estimated GFR was 48 mL per minute, his glucose 154, calcium was 8.5. Total bilirubin was 1.4. AST, ALT, alkaline phosphatase were normal. Total protein was 6.3, albumin 2.9. ASSESSMENT: Acute sigmoid diverticulitis, clinically responding. His white cell count is down. He is afebrile. What seems to be chronic kidney disease. His creatinine is 1.4 and 1.5 today, hypertension, hyperlipidemia, gout, and dermatitis herpetiformis. PLAN: To continue with IV fluid, IV antibiotic, antiemetic and pain management. We will repeat all his lab works again tomorrow and we will decide on further management accordingly. SOY MA MD DR: RON/chinedu JOB#: [id number] / [id number]
== END | disposition home or self-care (01) ==
LOC: CT 13:52
PROVIDERS: ATTEND Nurse Practitioner Family
DX: K57.32 Diverticulitis of large intestine without perforation or abscess without bleeding (principal)
CPT/HCPCS: 36415; 74177; 80053; 81001; 82150; 83690; 85007; 85027; 85651; Q9966; Q9967

== ENCOUNTER → 2020-06-29 | Outpatient (CLI) | payer BC, OTHER ==
[~2020-06-29] MED LIST changes: -AMLO10TA2 PO; +AMLO10TA8 PO; -FENO145T2 PO; +FENO145T3 PO; -IOHEXOL 240 MG/ML 50ML VIAL. PO ONE; -IOHEXOL 300 MG/ML 75 ML VIAL. IV ONE
--- NOTE | 2020-06-29 17:30 | RAD ---
HAND RIGHT 3V 06/29/2020 4:48 PM INDICATION: Severe swelling of the right hand, fall on outstretched hand COMPARISON: None available. TECHNIQUE: 4 views the right hand are provided. FINDINGS/ IMPRESSION: Soft tissue swelling involving the hand. No acute fracture or dislocation. Carpal bones appear intact. Joint spaces are maintained. No subcutaneous gas or osseous erosion. No radiopaque foreign density. Electronically signed by: Bonita Mosher MD (06/29/2020 5:27 PM) [id number]
== END | disposition home or self-care (01) ==
LOC: DXRAD 16:04
PROVIDERS: ATTEND Registered Nurse
DX: R22.31 Localized swelling, mass and lump, right upper limb (principal); M79.89 Other specified soft tissue disorders; M79.641 Pain in right hand
CPT/HCPCS: 73130

== ENCOUNTER → 2020-12-16 | Outpatient (CLI) | payer BC ==
[~2020-12-16] MED LIST changes: +AMLO-187 PO; -AMLO10TA8 PO
[2020-12-16 23:07] LABS: IMMUNOGLOBULIN A 176 mg/dL (61-437); IMMUNOGLOBULIN G 1025 mg/dL (603-1613); IMMUNOGLOBULIN M 123 mg/dL (20-172)
[2020-12-18 15:10] LABS: GLIA IGA 53 units (0-19); GLIA IGG 63 units (0-19); TRANSGLUTAMINASE IGA AB 11 U/mL (0-3); TRANSGLUTAMINASE IGG AB <2 U/mL (0-5)
== END ==
LOC: LAB 14:26
PROVIDERS: ATTEND Internal Medicine Gastroenterology
DX: K90.0 Celiac disease (principal)
CPT/HCPCS: 36415; 82784; 83516

== ENCOUNTER → 2021-03-16 | Outpatient (CLI) | payer BC ==
--- NOTE | 2021-03-16 14:11 | CARD ---
MR#: [id number] Date of Study: 03/16/2021 Ordering Physician: DEANNA DRAPER, Referring Physician: DEANNA DRAPER, Tech: Fernanda Del Castillo [facility] APPROVED REPORT EXAM: Two-dimensional and M-mode echocardiogram with Doppler and color Doppler. Other Information Quality : AverageHR: 53bpm INDICATION Cardiac Disease: CAD RISK FACTORS Hypertension Hyperlipidemia 2D DIMENSIONS RVDd3.4 (2.9-3.5cm)Left Atrium(2D)2.8 (1.6-4.0cm) IVSd0.9 (0.7-1.1cm)Aortic Root(2D)3.4 (2.0-3.7cm) LVDd4.3 (3.9-5.9cm)LVOT Diameter2.2 (1.8-2.4cm) PWd0.8 (0.7-1.1cm)LVDs2.5 (2.5-4.0cm) FS (%) 41.4 %SV61.3 ml LVEF(%)62.5 (>50%) Aortic Valve AoV Peak Braxton.119.6cm/sAoV VTI25.7cm AO Peak GR.5.7mmHgLVOT Peak Braxton.85.6cm/s LVOT VTI 20.21cmAO Mean GR.3mmHg MORALES (VMAX)2.20fa1FCB (VTI)2.86cm2 Mitral Valve MV E Nzbjvfog61.6cm/sMV DECEL TLTE496nz MV A Cwouvaea29.9cm/sE/A Ratio1.4 Pulmonary Valve PV Peak Zyfzbdar07.6cm/sPV Peak Grad.2mmHg Tricuspid Valve TR P. Sbunapzv150sw/sRAP YLJNFEKB4adNg TR Peak Gr.10vgVhQDLJ39kdHr Pulmonary Vein S1 Binihzdi95.8cm/sD2 Mglgfryj96.1cm/s LEFT VENTRICLE The left ventricle is normal size. There is normal left ventricular wall thickness. The left ventricu lar systolic function is normal. The Ejection Fraction is 55-60%. There is normal LV segmental wall m otion. RIGHT VENTRICLE The right ventricle is normal size. There is normal right ventricular wall thickness. The right ventr icular systolic function is normal. ATRIA The left atrium size is normal. The right atrium size is normal. The interatrial septum is intact wit h no evidence for an atrial septal defect or patent foramen ovale as noted on 2-D or Doppler imaging. AORTIC VALVE The aortic valve is thickened but opens well. Doppler and Color Flow revealed trace aortic regurgitat ion. There is no significant aortic valvular stenosis. Calculated aortic valve area is 3.3 cm2 with m aximum pressure gradient of 6 mmHg and mean pressure gradient of 3 mmHg. MITRAL VALVE The mitral valve is normal in structure and function. There is no evidence of mitral valve prolapse. There is no mitral valve stenosis. Doppler and Color-flow revealed trace mitral regurgitation. TRICUSPID VALVE The tricuspid valve is normal in structure and function. Doppler and Color Flow revealed trace tricus pid regurgitation with an estimated PAP of 23 mmHg. There is no tricuspid valve stenosis. PULMONIC VALVE The pulmonary valve is normal in structure and function. Doppler and Color Flow revealed trace pulmon ic valvular regurgitation. GREAT VESSELS The aortic root is normal in size. The ascending aorta is normal in size. The IVC is normal in size a nd collapses >50% with inspiration. PERICARDIAL EFFUSION There is no evidence of significant pericardial effusion. Critical Notification Critical Value: No <Conclusion> The left ventricular systolic function is normal. The Ejection Fraction is 55-60%. There is normal LV segmental wall motion. Trace mitral regurgitation. Trace tricuspid regurgitation with an estimated PAP of 23 mmHg. There is no evidence of significant pericardial effusion. Signed by : Deanna Draper, Electronically Approved : 03/16/2021 14:11:44
== END ==
LOC: ECHO 09:26
PROVIDERS: ATTEND Internal Medicine Cardiovascular Disease
DX: I25.10 Atherosclerotic heart disease of native coronary artery without angina pectoris (principal)
CPT/HCPCS: 93306

== ENCOUNTER → 2021-10-19 | Outpatient (CLI) | payer BC ==
--- NOTE | 2021-10-19 17:12 | CARD ---
MR#: [id number] Date of Study: 10/19/2021 Ordering Physician: DEANNA WILLIAM, Referring Physician: DEANNA WILLIAM, Tech: Fernanda Del Castillo [facility] APPROVED REPORT EXAM: Two-dimensional and M-mode echocardiogram with Doppler and color Doppler. Other Information Quality : AverageHR: 54bpm INDICATION Cardiac Disease: CAD RISK FACTORS Hypertension Hyperlipidemia 2D DIMENSIONS RVDd3.2 (2.9-3.5cm)Left Atrium(2D)3.3 (1.6-4.0cm) IVSd0.8 (0.7-1.1cm)Aortic Root(2D)3.4 (2.0-3.7cm) LVDd4.4 (3.9-5.9cm)LVOT Diameter2.0 (1.8-2.4cm) PWd0.9 (0.7-1.1cm)LVDs2.7 (2.5-4.0cm) FS (%) 39.3 %SV60.7 ml Aortic Valve AoV Peak Braxton.97.5cm/sAoV VTI22.1cm AO Peak GR.3.8mmHgLVOT Peak Braxton.78.3cm/s LVOT VTI 19.26cmAO Mean GR.2mmHg MORALES (VMAX)2.81gf9SAD (VTI)2.79cm2 Mitral Valve MV E Vhtdkkqo97.5cm/sMV E Peak Gr.2mmHg MV DECEL [id number] A Firjgxss52.1cm/s MV E Mean Gr.1mmHgE/A Ratio1.3 Pulmonary Valve PV Peak Asbfrjrc90.8cm/sPV Peak Grad.4mmHg Tricuspid Valve TR P. Wveljwat154ou/sRAP URZZMJQA9nzRq TR Peak Gr.39xiPdRVXZ89mtNu Pulmonary Vein S1 Lmwwzmyx92.2cm/sD2 Dseawunk97.2cm/s LEFT VENTRICLE The left ventricle is normal size. There is normal left ventricular wall thickness. The left ventricu lar systolic function is normal and the ejection fraction is within normal range. The Ejection Fracti on is 60-65%. There is normal LV segmental wall motion. Transmitral Doppler flow pattern is Grade II- pseudonormal filling dynamics. RIGHT VENTRICLE The right ventricle is normal size. There is normal right ventricular wall thickness. The right ventr icular systolic function is normal. ATRIA The left atrium size is normal. The right atrium size is normal. The interatrial septum is intact wit h no evidence for an atrial septal defect or patent foramen ovale as noted on 2-D or Doppler imaging. AORTIC VALVE The aortic valve is thickened but opens well. Doppler and Color Flow revealed no significant aortic r egurgitation. Calculated aortic valve area is 2.9 cm2 with maximum pressure gradient of 4 mmHg and me an pressure gradient of 2 mmHg. There is no significant aortic valvular stenosis. MITRAL VALVE The mitral valve is normal in structure and function. There is systolic anterior motion of the mitral valve. There is no evidence of mitral valve prolapse. There is no mitral valve stenosis. Doppler and Color-flow revealed trace mitral regurgitation. TRICUSPID VALVE The tricuspid valve is normal in structure and function. Doppler and Color Flow revealed trace tricus pid regurgitation with an estimated PAP of 29 mmHg. There is no tricuspid valve stenosis. PULMONIC VALVE The pulmonic valve is not well visualized. Doppler and Color Flow revealed trace to mild pulmonic katerin vular regurgitation. GREAT VESSELS The aortic root is normal in size. The ascending aorta is normal in size. The IVC is normal in size a nd collapses >50% with inspiration. PERICARDIAL EFFUSION There is no evidence of significant pericardial effusion. Critical Notification Critical Value: No <Conclusion> The left ventricle is normal size. The left ventricular systolic function is normal and the ejection fraction is within normal range. The Ejection Fraction is 60-65%. Doppler and Color Flow revealed no significant aortic regurgitation. There is no significant aortic valvular stenosis. Doppler and Color-flow revealed trace mitral regurgitation. Doppler and Color Flow revealed trace tricuspid regurgitation with an estimated PAP of 29 mmHg. Signed by : Bal Alejandra MD Electronically Approved : 10/19/2021 17:12:07
--- NOTE | 2021-10-20 12:10 | RAD ---
MR#: [id number] Date of Study: 10/19/2021 Ordering Physician: DEANNA WILLIAM, Referring Physician: FRAN LOCKHART Tech: JEANNIE Harrington ARRT (Mike) (N) APPROVED REPORT Test Type: Pharmacological Stress Nurse/Tech: KINGS Rod Test Indications: cad Cardiac History: See Electronic Medical Record Medications: See Electronic Medical Record Medical History: See Electronic Medical Record Resting ECG: sr Resting Heart Rate: 50 bpm Resting Blood Pressure: 136/67mmHg Pretest Chest Pain: None Nurse/Tech Notes SR Consent: The procedure was explained to the patient in lay terms. Informed consent was witnessed. Timeout was entered into [employer]. History and Stress Test performed by JEANNIE Harrington ARRT (Mike) (N) Pharm. Details Pharmacologic stress testing was performed using 0.4mg per 5ml of regadenoson given intravenously over 7-10 seconds. Stress Symptoms No chest pain or symptoms. POST EXERCISE Reason for Termination: Infusion complete Target HR: No Max HR: 86 bpm 65% of Maximum Predicted HR: 132 bpm Exercise duration: 6 min:sec, Stage Max Blood Pressure: 136/67mmHg Blood Pressure response to exercise: Normal blood pressure response during stress. Chest Pain: No. Arrhythmia: No. ST Change: No. INTERPRETATION Stress EKG Conclusion: The resting EKG shows a sinus rhythm and mild nonspecific ST segment changes. The stress EKG shows no significant changes from baseline. No EKG evidence of stress-induced ischemia. Imaging Protocol IMAGE PROTOCOL: Rest Tc-99m/stress Tc-99m 1 day Rest: Stress: Viability: Radiopharm. Tc99m Sestamibi Tc99m Sestamibi Dose 10mCi 31mCi Img Date 10/19/2021 10/19/2021 Inj-Img Time 45min. 90min. Rest Admin Site: IV - Right Antecubital Subpoena Server: JEANNIE Harrington ARRT (Mike)(N) Stress Admin Site: IV - Right Antecubital Subpoena Server: JEANNIE Harrington ARRT (R)(N) STRESS DATA End Diast. Vol. 71.0ml Av. Heart Rate 62.0bpm End Syst. Vol. 9.0ml CO Index BSA 0.0L/min Myocardial Mass 117.0g Eject. Fraction 87.0% Stress Rates Pk. Fill Rate 3.24EDV/sec LVtime Pk. Fill 217.01msec Pk. Empty Rate 4.42ESV/sec LVtime Pk. Eject 153.90msec 3 Pk. Fill 1.73EDV/sec Stress Scores Regional WT 0.00 Summed WT 0.00 Regional WM 0.00 Summed WM 0.00 LV Perfusion The stress scans showed no significant defects. The rest scans showed no significant defects. Nuclear imaging shows no reversible ischemia or infarct. Wall Motion Left ventricular systolic function is normal with an ejection fraction of greater than 70%. LV Perf. Quant 17 Seg. SSS 0.00 17 Seg. SRS 6.00 17 Seg. SDS 0.00 Stress Defect Extent (% LAD) 0.00 Rest Defect Extent (% LAD) 2.50 Rev. Defect Extent (% LAD) 0.00 Stress Defect Extent (% LCX) 5.00 Rest Defect Extent (% LCX) 45.00 Rev. Defect Extent (% LCX) 2.50 Stress Defect Extent (% RCA) 0.00 Rest Defect Extent (% RCA) 0.00 Rev. Defect Extent (% RCA) 0.00 Stress Defect Extent (% ARMIN) 0.90 Rest Defect Extent (% ARMIN) 10.90 Rev. Defect Extent (% ARMIN) 0.40 Conclusion 1. No EKG evidence of stress-induced ischemia. 2. Nuclear imaging shows no reversible ischemia or infarct. 3. Left ventricular systolic function is normal with an ejection fraction of greater than 70%. 4. Low risk Lexiscan nuclear stress test. Signed by : Bal Alejandra MD Electronically Approved : 10/20/2021 09:52:59 DEJUAN
== END ==
LOC: ECHO 08:37
PROVIDERS: ATTEND Internal Medicine Cardiovascular Disease
DX: I37.1 Nonrheumatic pulmonary valve insufficiency (principal); I25.10 Atherosclerotic heart disease of native coronary artery without angina pectoris
CPT/HCPCS: 78452; 93017; 93306; A9500